=== PATIENT | female | born 1980 | race Caucasian/White ===

== ENCOUNTER 2022-03-06 10:37 | Emergency (ER) | payer OTHER, SELFPAY ==
[2022-03-06 10:47] VITALS: BP 141/92; PULSE 80; RESP 20; TEMP 36.4; O2SAT 100
--- NOTE | 2022-03-06 13:03 | ED.EYEPROB ---
HPI - Eye Problem General Chief complaint: Eye Problems Stated complaint: Eye Problem Time Seen by Provider: 03/06/22 13:03 Source: patient, RN notes reviewed and old records reviewed Mode of arrival: ambulatory Limitations: no limitations History of Present Illness HPI Narrative: 41-year-old female who presents to [facility] with complaints of left eye swelling redness and noted some matting to left eye onset yesterday morning. Patient reports that she has noted matting to left eye in the morning for the past 2 days. Patient denies any sharp pain to her left eye or any vision changes. patient has some swelling noted to her left upper eyelid. Visual acuity 20/20 bilateral eyes with no corrective lens worn. MD chief complaint: eye redness Onset (ago): day(s) (1) Treatments Prior to Arrival: other (warm compresses) Related Data Home Medications Medication Instructions Recorded Confirmed allopurinol 300 mg tablet 300 mg PO DAILY 03/06/22 03/07/22 estradiol 0.05 mg-norethindrone See Rx Instructions .Route .COMPLEX 03/06/22 03/07/22 0.14 mg/24 hr semiwkly transderm patch (CombiPatch) meloxicam 7.5 mg tablet 7.5 mg PO DAILY 03/06/22 03/07/22 Allergies Allergy/AdvReac Type Severity Reaction Status Date / Time amoxicillin Allergy Rash Verified 03/06/22 12:57 iohexol Allergy Unknown Verified 03/06/22 12:57 [From contrast - CT, X-RAY] Review of Systems Review of Systems: CONSTITUTIONAL: Denies fever, chills, or sweats. EYES: Denies visual changes. Reports redness,, irritation, discharge to left eye some swelling to upper eyelid left eye. ENT: Denies rhinorrhea, congestion, sore throat, or otalgia. CARDIOVASCULAR: Denies chest pain, palpitations, or edema. RESPIRATORY: Denies cough or dyspnea. SKIN: Denies rash or itching. NEUROLOGIC: Denies headache All systems reviewed & are unremarkable except as noted in HPI and below PMFSH Past Medical History Medical History (Updated 03/10/22 @ 21:13 by Massiel Garcia NP) Gout Social History Social History (Updated 03/10/22 @ 21:13 by Massiel Garcia NP) Smoking status: Never smoker Alcohol intake: current Alcohol use details: social Substance use type: does not use Gender identity (if verbalized by the patient): Female Comments At time of signature, agree with nursing past medical, surgical, social and family history. There is no relevant family history pertinent to the presenting complaint Exam Narrative: GENERAL: Well-appearing, well-nourished, and in no acute distress. HEAD: Normocephalic, atraumatic. EYES: PERRLA and EOMI. Upper and lower eyelids unremarkable. No periorbital cellulitis noted. Sclera and conjunctivae injected left eye with matting noted to eye ENT: Nares clear, no rhinorrhea or epistaxis. Mucous membranes moist. NECK: Supple. no lymphadenopathy CHEST: Clear to auscultation. No respiratory distress.SAO2 100% on room air HEART: Regular rate and rhythm. No murmur heard. Normal peripheral pulses. SKIN: Warm, dry, no rash. NEURO: No focal deficits. Alert and oriented x3. Course Course Emergency Course: Patient is aware of diagnosis, understands and agrees to treatment plan. Anticipatory guidance given. Patient agrees to follow-up as directed and is aware of reasons to seek care at the emergency department. Portions of this record may have been created with voice recognition software Level of Care: Express Care Visit Vital Signs Vital signs: Vital Signs Temperature 36.4 C L 03/06/22 10:47 Pulse Rate 80 03/06/22 10:47 Respiratory Rate 20 03/06/22 10:47 Blood Pressure 141/92 H 03/06/22 10:47 Pulse Oximetry 100 03/06/22 10:47 Oxygen Delivery Room Air 03/06/22 10:47 Temperature 36.4 C L 03/06/22 10:47 Pulse Rate 80 03/06/22 10:47 Respiratory Rate 20 03/06/22 10:47 Blood Pressure 141/92 H 03/06/22 10:47 Pulse Oximetry 100 03/06/22 10:47 Oxygen Delivery Room Air 03/06/22 10:47 Rev
== END 2022-03-06 13:15 | disposition home or self-care (01) ==
PROVIDERS: Emergency Provider Registered Nurse; PCP Family Medicine
DX: H10.9 Unspecified conjunctivitis (principal); M10.9 Gout, unspecified; Z85.41 Personal history of malignant neoplasm of cervix uteri; Z92.21 Personal history of antineoplastic chemotherapy; Z92.3 Personal history of irradiation
CPT/HCPCS: 99213; G0463